=== PATIENT | female | born 1990 | race African-American/Black ===

== ENCOUNTER 2019-09-22 10:50 | Emergency (ER) | payer MEDICAID ==
[~2019-09-22] VITALS: Ht 170.2 cm; Wt 59.0 kg
[2019-09-22] MEDS ORDERED: LORAZEPAM 1MG TABLET PO ONE (12:30)
[2019-09-22 13:03] LABS: CLARITY URINE CLOUDY (CLEAR); COLOR URINE YELLOW (YELLOW); KETONES URINE NEGATIVE (NEGATIVE); LEUKOCYTE ESTERASE URINE 1+ (NEGATIVE); NITRITE URINE POSITIVE (NEGATIVE); OCCULT BLOOD URINE NEGATIVE (NEGATIVE); PH URINE 6.5 (4.5-8.0); PROTEIN URINE NEGATIVE (NEGATIVE); UROBILINOGEN URINE 0.2 E.U./dL (0.2-1.0)
[2019-09-22] MEDS ORDERED: IBUPROFEN 400MG TABLET PO ONE (13:30)
[2019-09-22 13:32] LABS: BASOPHILS % 0.7 % (0.0-2.0); HEMATOCRIT. 42.8 % (36.0-48.0); HEMOGLOBIN. 14.1 g/dL (12.0-16.0); LYMPHOCYTES % 16.7 % (20.0-50.0); MEAN CORPUSCULAR HEMOGLOBIN 27.6 pg (28.0-32.0); MEAN CORPUSCULAR VOLUME 83.9 fL (81.0-99.0); MEAN PLATELET VOLUME 9.8 fl (7.4-10.4); MONOCYTES % 3.5 % (2.0-8.0); NEUTROPHILS % 79.1 % (40.0-76.0); PLATELET 205 x1000/uL (130-400); RED CELL DISTRIBUTION WIDTH 13.3 % (11.6-14.6)
[2019-09-22 13:38] LABS: CHLORIDE 107 mEq/L (98-107)
[2019-09-22 13:45] LABS: HCG SCREEN NEGATIVE
[2019-09-22] MEDS ORDERED: CEFTRIAXONE SODIUM 1 G/VIAL IM ONE (13:45)
[2019-09-22] MEDS ORDERED: LIDOCAINE HCL 1% 20ML VIAL (Pyxis) INJ INFIL ONE (13:45)
[2019-09-22] MEDS ORDERED: PHENYTOIN SODIUM EXTENDED 100MG CAPSULE PO ONE (14:15)
[2019-09-22 14:25] VITALS: BP 122/87
== END 2019-09-22 14:32 | disposition home or self-care (01) ==
LOC: ER 10:50
DX: F41.9 Anxiety disorder, unspecified (principal); N39.0 Urinary tract infection, site not specified; R89.2 Abnormal level of other drugs, medicaments and biological substances in specimens from other organs, systems and tissues; R07.2 Precordial pain; F12.10 Cannabis abuse, uncomplicated; R07.89 Other chest pain; Z98.890 Other specified postprocedural states
CPT/HCPCS: 36415; 71045; 80053; 80185; 81003; 81025; 83690; 84484; 84703; 85025; 93005; 96372; 99285; J0696; J3490